=== PATIENT | male | born 1980 | race Caucasian/White ===

== ENCOUNTER 2018-11-18 11:07 | Emergency (ER) | payer SELFPAY ==
[~2018-11-18] VITALS: Ht 175.3 cm; Wt 68.5 kg
[~2018-11-18 11:07] MED LIST: HYDR-4011 PO; ONDA4TAB14 PO
[2018-11-18 11:11] VITALS: Ht 175.3 cm; Wt 68.5 kg
--- NOTE | 2018-11-18 12:57 | ERD ---
ER Documentation Chief Complaint Chief Complaint ABD PAIN, ONSET 5 DAYS, NAUSEA BUT NO VOMITING HPI 38-year-old male presenting with abdominal pain that started 5 days ago. She had nausea but no vomiting. He has a history of umbilical hernia and he is concerned that his pain is returning. He had a normal bowel movement this morn ing with no fevers. He took Tylenol with no alleviation. Normal urination. He states is been consistently going on for the last 5 days. Denies medical problems. NKDA. Surgical history is hernia surgery. Social history smokes marijuana occasionally ROS All systems reviewed and are negative except as per history of present illness. Medications Home Meds Active Scripts Ondansetron (Ondansetron Odt) 4 Mg Tab.rapdis, 4 MG PO Q6H PRN for NAUSEA AND/OR VOMITING, #10 TAB Prov:NOAH CROSS PA-C 11/18/18 Hydrocodone/Acetaminophen (Ryde 5-325 Tablet) 1 Each Tablet, 1 TAB PO Q6H PRN for PAIN, #7 TAB Prov:NOAH CROSS PA-C 11/18/18 Allergies Allergies: Coded Allergies: No Known Allergy (Unverified , 11/18/18) PMhx/Soc Medical and Surgical Hx: pt denies Medical Hx History of Surgery: Yes (hernia repair) Anesthesia Reaction: No Hx Alcohol Use: No Hx Substance Use: Yes (marijuana) Hx Tobacco Use: No Smoking Status: Never smoker FmHx Family History: No diabetes, No coronary disease, No other Physical Exam Vitals Vital Signs Date Temp Pulse Resp B/P (MAP) Pulse Ox O2 O2 Flow FiO2 Time Delivery Rate 11/18/18 97.7 68 17 131/63 99 11:11 (85) Physical Exam GENERAL: The patient is well-appearing, well-nourished, in no acute distress HEENT: Atraumatic. Conjunctivae are pink. Pupils equal, round, and reactive to light. There is no scleral icterus. Tympanic membranes clear bilaterally. Jesus pharynx clear. NECK: C-spine is soft and supple. There is no meningismus. There is no cervical lymphadenopathy. CHEST: Clear to auscultation bilaterally. There are no rales, wheezes or rhonchi. HEART: Regular rate and rhythm. No murmurs, clicks, rubs or gallops. ABDOMEN:Soft, nontender and nondistended. Good bowel sounds. No rebound or guarding. No gross peritonitis. No gross organomegaly or masses. Result Diagram: 11/18/18 1143 11/18/18 1143 Results 24 hrs Laboratory Tests Test 11/18/18 11:43 White Blood Count 5.2 10^3/ul Red Blood Count 6.00 10^6/ul Hemoglobin 12.8 g/dl Hematocrit 42.1 % Mean Corpuscular Volume 70.2 fl Mean Corpuscular Hemoglobin 21.3 pg Mean Corpuscular Hemoglobin Concent 30.4 g/dl Red Cell Distribution Width 17.1 % Platelet Count 151 10^3/UL Mean Platelet Volume 10.4 fl Immature Granulocytes % 0.400 % Neutrophils % 57.5 % Lymphocytes % 29.1 % Monocytes % 9.7 % Eosinophils % 2.5 % Basophils % 0.8 % Nucleated Red Blood Cells % 0.0 /100WBC Immature Granulocytes # 0.020 10^3/ul Neutrophils # 3.0 10^3/ul Lymphocytes # 1.5 10^3/ul Monocytes # 0.5 10^3/ul Eosinophils # 0.1 10^3/ul Basophils # 0.0 10^3/ul Nucleated Red Blood Cells # 0.0 10^3/ul Urine Color YELLOW Urine Clarity CLEAR Urine pH 7.0 Urine Specific [place] 1.020 Urine Ketones NEGATIVE mg/dL Urine Nitrite NEGATIVE mg/dL Urine Bilirubin NEGATIVE mg/dL Urine Urobilinogen NEGATIVE mg/dL Urine Leukocyte Esterase NEGATIVE Yun/ul Urine Hemoglobin NEGATIVE mg/dL Urine Glucose NEGATIVE mg/dL Urine Total Protein NEGATIVE mg/dl Sodium Level 140 mmol/L Potassium Level 3.8 mmol/L Chloride Level 100 mmol/L Carbon Dioxide Level 32 mmol/L Anion Gap 8 Blood Urea Nitrogen 22 mg/dl Creatinine 0.79 mg/dl Est Glomerular Filtrat Rate mL/min > 60 mL/min Glucose Level 95 mg/dl Calcium Level 9.5 mg/dl Total Bilirubin 0.7 mg/dl Direct Bilirubin 0.00 mg/dl Indirect Bilirubin 0.7 mg/dl Aspartate Amino Transf (AST/SGOT) 25 IU/L Alanine Aminotransferase (ALT/SGPT) 29 IU/L Alkaline Phosphatase 74 IU/L Total Protein 7.4 g/dl Albumin 4.5 g/dl Globulin 2.90 g/dl Albumin/Globulin Ratio 1.55 Lipase 75 U/L Procedures/MDM DIAGNOSTIC IMAGING REPORT Patient: CASSI CAPONE : 1980 Age: 38 Sex: M MR #: [id number] [facility] #: [id number] DOS: 11/18/18 1131 Ordering MD: LIZETH CROSS PA-C Location: [facility] Room/Bed: PROCEDURE: CT Abdomen and Pelvis without contrast. CLINICAL INDICATION: Abdominal pain. TECHNIQUE: Routine axial tomographic images of the abdomen and pelvis were obtained from the domes the diaphragm to the symphysis pubis. The patient was scanned withoutoral or intravenous contrast. Coronal and sagittal reformatted images were obtained from the axial source images. Images were reviewed on a high-resolution PACS workstation. The total exam CTDI equals 6.50 mGy and the total exam DLP equals 338.94 mGy-cm. One or more of the following dose reduction techniques were used: Automated exposure control, adjustment of the mA and / or kV according to patient size, or use of iterative reconstruction technique. DICOM images are available. COMPARISON: None. FINDINGS: The visualized portions of the lung bases are clear. Evaluation of the intra-abdominal solid organs is somewhat limited on this noncontrast examination. The liver appears normal in size. There is no intra or extrahepatic biliary dilatation. The gallbladder is unremarkable by CT criteria. The spleen, pancreas, and adrenal glands are unremarkable. The kidneys are symmetric in size. No renal, ureteral, or bladder calculi are identified. No perinephric inflammatory changes are identified. The urinary bladder is grossly unremarkable. The bowel demonstrates normal course and caliber. There is no evidence of bowel obstruction. The appendix is normal in appearance. The pelvic organs are grossly unremarkable. No intraperitoneal free fluid, free air, or abscess is identified. No retroperitoneal, mesenteric, or inguinal lymphadenopathy is identified. The aorta is normal in caliber. The osseous structures are unremarkable. No significant subcutaneous soft tissue abnormalities are seen. IMPRESSION: 1. Significantly limited evaluation secondary to absence of oral and IV co ntrast as well as paucity of intra-abdominal fat. No definite acute intra- abdominal abnormality is seen. 2. The appendix is not visualized. MDM: 38-year-old male presenting with abdominal pain. I have low suspicion for acute abdominal emergency. I have low suspicion for electrolyte abnormality. I have low suspicion for urinary tract infection. Patient is discharged with strict ER precautions and told to follow-up with primary care within 1 to 2 days for close evaluation. Patient is told if symptoms change or worsen to return immediately to the ER. All questions answered at discharge Departure Diagnosis: Primary Impression: Abdominal pain Condition: Stable Patient Instructions: Abdominal Pain Referrals: COUNT INCLUDES THE [facility] YOU HAVE RECEIVED A MEDICAL SCREENING EXAM AND THE RESULTS INDICATE THAT YOU DO NOT HAVE A CONDITION THAT REQUIRES URGENT TREATMENT IN THE EMERGENCY DEPARTMENT. FURTHER EVALUATION AND TREATMENT OF YOUR CONDITION CAN WAIT UNTIL YOU ARE SEEN IN YOUR DOCTORS OFFICE WITHIN THE NEXT 1-2 DAYS. IT IS YOUR RESPONSIBILITY TO MAKE AN APPOINTMENT FOR FOLOW-UP CARE. IF YOU HAVE A PRIMARY DOCTOR --you should call your primary doctor and schedule an appointment IF YOU DO NOT HAVE A PRIMARY DOCTOR YOU CAN CALL OUR PHYSICIAN REFERRAL HOTLINE AT IF YOU CAN NOT AFFORD TO SEE A PHYSICIAN YOU CAN CHOSE FROM THE FOLLOWING [facility] [address] [facility] [address] [facility] [address] [facility] [address] [facility] [address] [facility]. [address] Additional Instructions: FOLLOW UP WITH YOUR PRIMARY CARE PHYSICIAN TOMORROW.Return to this facility if you are not improving as expected. NOAH CROSS PA-C Nov 18, 2018 12:57
[2018-11-18 13:00] VITALS: BP 123/60; PULSE 65; RESP 18
== END 2018-11-18 13:01 | disposition home or self-care (01) ==
LOC: FTE 11:07
DX: R10.9 Unspecified abdominal pain (principal)
CPT/HCPCS: 36415; 74176; 80053; 81003; 83690; 85025